=== PATIENT | male | born 1935 | race Caucasian/White ===

== ENCOUNTER → 2017-01-30 | Outpatient (CLI) | payer MEDICARE, BC ==
[2017-01-30 14:49] LABS: HEMOGLOBIN 15.4 g/dL (14.1-18.0); LYMPH # 1.6 K/mm3 (0.7-4.5); LYMPH % 18.8 % (10-50)
--- NOTE | 2017-01-30 15:17 | RADIOLOGY REPORT PS360 ---
CHEST(2 VIEWS-NOT PORTABLE) COMPARISON: PA and lateral chest 10/14/2008 HISTORY: Left-sided chest pain TECHNIQUE: PA and lateral chest FINDINGS: The lung smith are well expanded and appear clear of infiltrate. There is mild aortic tortuosity with mild or borderline generalized cardiomegaly. There is a left-sided cardiac pacemaker with dual chamber electrodes both in good position. There is no pleural fluid. IMPRESSION: Nonacute chest findings
[2017-01-30 15:26] LABS: BUN 15 mg/dL (7-18)
[2017-01-30 15:43] LABS: GFR (ESTIMATED) 93 ML/MIN (>60)
== END ==
LOC: LAB 14:32
PROVIDERS: Internal Medicine
DX: R10.11 Right upper quadrant pain (principal); R07.89 Other chest pain

== ENCOUNTER → 2017-02-22 | Outpatient (CLI) | payer MEDICARE, BC ==
[~2017-02-22] MED LIST: ALEVE220 MG PO; ATORVASTATIN CA10 MG PO; CIPRO 500MG TA500 MG PO; FAMOTIDINE 20MG20 MG PO; LEVOTHYROXINE0.05 MG PO; LOSARTAN POTASS50 MG PO; MASON NATURAL1200 MG PO; METHYLPREDNISONE4 MG PO; VITAMIN B125000 MCG SL; ZYLOPRIM 100MG100 MG PO
--- NOTE | 2017-02-22 16:44 | RADIOLOGY REPORT PS360 ---
US RUQ-(ABD LTD)1ORGAN/QUAD/FU HISTORY: Right upper quadrant pain RT ABD PAIN ORDERING PHYSICIAN: Dayton Erickson MD PATIENT AGE: 81 years COMPARISON: None FINDINGS: PANCREAS:Unremarkable. No obvious mass or abnormal fluid collection. No ductal dilatation LIVER:No focal liver lesions demonstrated. Homogeneous echogenicity. No intrahepatic biliary ductal dilatation evident. Increased echogenicity of the liver consistent with hepatic steatosis RIGHT KIDNEY:Unremarkable. Normal size and echogenicity. No hydronephrosis GALLBLADDER:No gallstones, gallbladder wall thickening, pericholecystic fluid, or biliary dilatation. IMPRESSION: Fatty liver otherwise negative right upper quadrant ultrasound. No gallstones apparent
== END ==
LOC: RAD 07:43
DX: R10.11 Right upper quadrant pain (principal)